=== PATIENT | female | born 1980 | race Caucasian/White ===

== ENCOUNTER 2016-12-04 16:13 | Emergency (ER) | payer MEDICAID, OTHER ==
[~2016-12-04] VITALS: Ht 162.6 cm; Wt 52.0 kg
[~2016-12-04 16:13] MED LIST: ALBU8I INH; DIPH50TA PO; IBUP400 PO; PRED20 PO; TAB-TAB PO
[2016-12-04 16:23] VITALS: BP 115/68; PULSE 71; RESP 17; TEMP 98.1; O2SAT 98
--- NOTE | 2016-12-04 17:29 | PD ---
HPI Chief Complaint: Headache Time Seen by Provider: 17:15 Travel History International Travel<30 days: No Contact w/Intl Traveler<30days: No Traveled to known affect area: No History of Present Illness HPI 36-year-old female complains of headache. Patient states that headache started yesterday. Patient states the headache from headache was severe on the right side of the head. Patient states that she has visual disturbance and photophobia. Patient has history of chronic neck pain. States the neck pain is not new. Patient states that she had transient numbness of the left arm this morning. Patient denies any nausea vomiting. Patient denies any chest pain or shortness of breath. Patient denies abdominal pain. Patient denies any focal weakness of extremity. Patient denies any recent head injury. Patient denies any fever chills. Patient states that she has a history of migraine headaches, however this one is different in the type, location and intensity. On a scale of 1-10 headache is a 10. PFSH Past Medical History Asthma: Yes Diminished Hearing: No Respiratory: Yes (Asthma ) Immunizations Current: No (DOES NOT GET ANY IMMUNIZATIONS) ?: Not LMP: 2 DAYS : 3 Para: 3 Past Surgical History Gynecologic Surgery: Yes (UTERINE SUSPESION) Social History Alcohol Use: Yes (OCC) Tobacco Use: No Substance Use: No Allergies-Medications (Allergen,Severity, Reaction): Coded Allergies: No Known Allergies (Unverified , 12/04/16) Reported Meds & Prescriptions Reported Meds & Active Scripts Active Reported Excedrin Migraine (Gufqvdt-Upospxbhpkghn-Dmkwvrcp) 250-250-65 Mg Tab 2 Tab PO DIRECTED PRN Magnesium Oxide 400 Mg Tab 400 Mg PO DAILY Multi-Vitamin Daily (Multiple Vitamin) 1 Tab Tab 1 Tab PO DAILY Review of Systems General / Constitutional: No: Fever Eyes: Positive: Photophobia, No: Visual changes HENT: Positive: Headaches Cardiovascular: No: Chest Pain or Discomfort Respiratory: No: Shortness of Breath Gastrointestinal: No: Abdominal Pain Genitourinary: No: Dysuria Musculoskeletal: No: Pain Skin: No Rash Neurologic: No: Weakness Psychiatric: No: Depression Endocrine: No: Polydipsia Hematologic/Lymphatic: No: Easy Bruising Physical Exam Narrative GENERAL: Well-nourished, well-developed patient. SKIN: Warm and dry. HEAD: Normocephalic. EYES: No scleral icterus. No injection or drainage. Pupils 2 mm equal reactive. NECK: Supple, trachea midline. No JVD or lymphadenopathy. No meningismus CARDIOVASCULAR: Regular rate and rhythm without murmurs, gallops, or rubs. RESPIRATORY: Breath sounds equal bilaterally. No accessory muscle use. GASTROINTESTINAL: Abdomen soft, non-tender, nondistended. MUSCULOSKELETAL: No cyanosis, or edema. BACK: Nontender without obvious deformity. No CVA tenderness. Neurologic exam normal. Data Data Last Documented VS Vital Signs Date Time Temp Pulse Resp B/P Pulse Ox O2 Delivery O2 Flow Rate FiO2 12/04/16 18:15 76 16 86/60 100 Room Air 12/04/16 16:23 98.1 Orders Sodium Chlor 0.9% 1000 Ml Inj (Ns 1000 M (12/04/16 17:30) Ketorolac Inj (Toradol Inj) (12/04/16 17:30) Morphine Inj (Morphine Inj) (12/04/16 17:30) Diphenhydramine Inj (Benadryl Inj) (12/04/16 17:30) Prochlorperazine Inj (Compazine Inj) (12/04/16 17:30) Ct Brain W/O Iv Contrast(Rout) (12/04/16 17:22) MDM Medical Decision Making Medical Screen Exam Complete: Yes Emergency Medical Condition: Yes Interpretation(s) [address] scan of brain negative acute pathology. Differential Diagnosis Differential diagnosis including migraine headache, tension headache, cluster headache, encephalitis, intracranial hemorrhage. Narrative Course 36-year-old female with headache. History of migraine. Normal saline solution 1 L IV bolus. Morphine 2 mg IV. Toradol 30 mg IV. Compazine 10 mg IV. Benadryl 50 mg IV. Diagnosis Primary Impression: Cephalgia Qualified Code: R51 - Nonintractable episodic headache, unspecified headache type Patient Instructions: General Instructions Additional Instructions: Take medications as needed for headache. Follow-up with personal physician and neurologist. Return if persistent problem or worse. Med/Other Pt SpecificInfo: Prescription(s) given Scripts Hydrocodone-Acetaminophen ([place])5-325 mg Tab1 Tab PO Q6H PRN ([place]ACHE) #20 TAB Ref 0 Prov:Ad Vega MD 12/04/16 Rkaoaylvaf-Bctmlgnuqqtke-Zqimadyq (Fioricet)50-300-40 Mg Cap1-2 Cap PO Q6H PRN ( HEADACHE) #30 CAP Ref 0 Prov:Ad Vega MD 12/04/16 Disposition: 01 DISCHARGE HOME Condition: Stable Ad Vega MD Dec 04, 2016 17:29
[2016-12-04] MEDS ORDERED: MORPHINE SULFATE 4 MG/ML INJ IV PUSH ONE (17:30)
[2016-12-04] MEDS ORDERED: KETOROLAC TROMETHAMINE 30 MG/ML (IVP) VIAL IV PUSH ONE (17:30)
[2016-12-04] MEDS ORDERED: SODIUM CHLOR 0.9% 1000 ML INJ 1,000 ML IV ONE (17:30)
[2016-12-04] MEDS ORDERED: PROCHLORPERAZINE INJ 10 MG/2 ML VIAL IVS ONE (17:30)
[2016-12-04] MEDS ORDERED: diphenhydrAMINE HCL 50 MG/ML VIAL IV PUSH ONE (17:30)
[2016-12-04] MEDS ORDERED: EXCETAB PO (18:12)
[2016-12-04] MEDS ORDERED: MULT-65 PO (18:12)
[2016-12-04] MEDS ORDERED: MAGN400T2 PO (18:12)
[2016-12-04 18:15] VITALS: BP 86/60; PULSE 76; RESP 16; O2SAT 100
--- NOTE | 2016-12-04 18:29 | RADHPO ---
EXAM DATE/TIME: 12/04/2016 18:06 [facility] COMPARISON: No previous studies available for comparison. INDICATIONS : Cephalgia with photophobia. RADIATION DOSE: 65.50 CTDIvol (mGy) MEDICAL HISTORY : None SURGICAL HISTORY : None. ENCOUNTER: Initial ACUITY: 2 days PAIN SCALE: 3/10 LOCATION: Bilateral cranial TECHNIQUE: Multiple contiguous axial images were obtained of the head. Using automated exposure control and adj ustment of the mA and/or kV according to patient size, radiation dose was kept as low as reasonably a chievable to obtain optimal diagnostic quality images. FINDINGS: CEREBRUM: The ventricles are normal for age. No evidence of midline shift, mass lesion, hemorrhage or acute in farction. No extra-axial fluid collections are seen. POSTERIOR FOSSA: The cerebellum and brainstem are intact. The 4th ventricle is midline. The cerebellopontine angle i s unremarkable. EXTRACRANIAL: The visualized portion of the orbits is intact. SKULL: The calvaria is intact. No evidence of skull fracture. CONCLUSION: Negative noncontrast head CT. Lennox Garcia MD on December 04, 2016 at 18:27 Board Certified Radiologist. This report was verified electronically.
[2016-12-04] MEDS ORDERED: BUTA1CAP PO (18:37)
[2016-12-04] MEDS ORDERED: NORC5TAB PO (18:37)
[2016-12-04 18:50] VITALS: BP 95/54; PULSE 75; RESP 16; O2SAT 100
== END 2016-12-04 19:09 | disposition home or self-care (01) ==
LOC: PHED 16:13
DX: R51 Headache (principal); H53.149 Visual discomfort, unspecified; G89.29 Other chronic pain; J45.909 Unspecified asthma, uncomplicated
CPT/HCPCS: 70450; 96361; 96374; 96375; 99283; J0780; J1200; J1885; J2270; J7030

== ENCOUNTER 2018-01-07 12:30 | Emergency (ER) | payer MEDICAID, OTHER ==
[~2018-01-07] VITALS: Ht 162.6 cm; Wt 52.0 kg
[~2018-01-07 12:30] MED LIST changes: -ALBU8I INH; +BUTA1CAP PO; -DIPH50TA PO; +EXCETAB PO; -IBUP400 PO; +MAGN400T2 PO; +MULT-65 PO; +NORC5TAB PO; -PRED20 PO; -TAB-TAB PO
[2018-01-07 12:37] VITALS: BP 141/68; PULSE 84; RESP 15; TEMP 97.8; O2SAT 100
[2018-01-07] MEDS ORDERED: IBUPROFEN 600 MG TAB PO ONE (13:45)
--- NOTE | 2018-01-07 14:40 | RADRPT ---
EXAM DATE/TIME: 01/07/2018 14:00 [facility] COMPARISON: No previous studies available for comparison. INDICATIONS : Fall. Left ankle pain. MEDICAL HISTORY : None. SURGICAL HISTORY : None. ENCOUNTER: Initial ACUITY: 1 day PAIN SCORE: 7/10 LOCATION: Left lateral FINDINGS: Three view exam was performed of the left ankle. The bony structures are in normal alignment. No ev idence of fracture, dislocation, or soft tissue swelling. The ankle mortise is intact. No radiopaqu e foreign bodies are seen. Bony mineralization is normal. CONCLUSION: No fracture. Derek Ken MD on January 07, 2018 at 14:38 Board Certified Radiologist. This report was verified electronically.
--- NOTE | 2018-01-07 14:40 | RADRPT ---
EXAM DATE/TIME: 01/07/2018 13:53 [facility] COMPARISON: No previous studies available for comparison. INDICATIONS : Fall. Left foot pain. MEDICAL HISTORY : None. SURGICAL HISTORY : None. ENCOUNTER: Initial ACUITY: 1 day PAIN SCORE: 7/10 LOCATION: Left lateral FINDINGS: Three view examination of the left foot demonstrates no soft tissue swelling, dislocation, or fractur e. The tarsal bones appear intact. The interphalangeal and metatarsophalangeal joints are intact. The calcaneus is intact. Bony mineralization is normal. CONCLUSION: No fracture. Derek Ken MD on January 07, 2018 at 14:38 Board Certified Radiologist. This report was verified electronically.
--- NOTE | 2018-01-07 14:40 | PD ---
HPI Chief Complaint: Injury Time Seen by Provider: 13:37 Travel History International Travel<30 days: No Contact w/Intl Traveler<30days: No Traveled to known affect area: No History of Present Illness HPI Patient is a 37-year-old female who comes in after she twisted her ankle last night while playing with her children. She says she inverted her ankle and immediately felt pain. She says she was able to walk on it after the injury, but with discomfort. She says it got worse this morning, so she came in. She tried putting ice on it and keeping it elevated without relief of her symptoms. She denies other injuries. Severity is mild. PFSH Past Medical History Asthma: Yes Diminished Hearing: No Headaches: Yes Respiratory: Yes (Asthma ) Immunizations Current: No (DOES NOT GET ANY IMMUNIZATIONS) Migraines: Yes LMP: 12/2017 : 3 Para: 3 Past Surgical History Gynecologic Surgery: Yes (UTERINE SUSPESION) Social History Alcohol Use: Yes (occas mix drinks) Tobacco Use: No (smoked cigs in high school and quit) Substance Use: No Allergies-Medications (Allergen,Severity, Reaction): Coded Allergies: No Known Allergies (Unverified Adverse Reaction, Unknown, 01/07/18) Reported Meds & Prescriptions Reported Meds & Active Scripts Active [place] (Hydrocodone-Acetaminophen) 5-325 mg Tab 1 Tab PO Q6H PRN Fioricet (Ozqsmklaeo-Whogfgzeuwssj-Fegxghfm) 50-300-40 Mg Cap 1-2 Cap PO Q6H PRN Reported Magnesium Oxide 400 Mg Tab 400 Mg PO DAILY Multi-Vitamin Daily (Multiple Vitamin) 1 Tab Tab 1 Tab PO DAILY Review of Systems General / Constitutional: No: Fever, Chills HENT: No: Headaches, Lightheadedness Cardiovascular: No: Chest Pain or Discomfort Respiratory: No: Shortness of Breath Gastrointestinal: No: Nausea, Abdominal Pain Musculoskeletal: Positive: Pain, No: Weakness Skin: No Rash, No Change in Pigmentation Neurologic: No: Weakness, Dizziness, Syncope Physical Exam Narrative GENERAL: Awake and alert, in no acute distress. SKIN: Focused skin assessment warm/dry. No wounds or signs of infection. HEAD: Atraumatic. Normocephalic. EYES: Pupils equal and round. No scleral icterus. ENT: Mucous membranes pink and moist. CARDIOVASCULAR: Regular rate and rhythm. No murmur appreciated. RESPIRATORY: No accessory muscle use. Clear to auscultation. Breath sounds equal bilaterally. MUSCULOSKELETAL: No obvious deformities. No clubbing. No cyanosis. No edema. Tender to palpation to the lateral side of the left foot. Pedal pulses and sensation intact. NEUROLOGICAL: Awake and alert. No obvious cranial nerve deficits. Motor grossly within normal limits. Normal speech. Data Data Last Documented VS Vital Signs Date Time Temp Pulse Resp B/P (MAP) Pulse Ox O2 Delivery O2 Flow Rate FiO2 01/07/18 12:37 97.8 84 15 141/68 (92) 100 Orders Orders Ankle, Complete (Cek2ahd) (01/07/18 ) Foot, Complete (Vow5zag) (01/07/18 ) Ibuprofen (Motrin) (01/07/18 13:45) MDM Medical Decision Making Medical Screen Exam Complete: Yes Emergency Medical Condition: Yes Differential Diagnosis ankle sprain vs ankle fracture vs foot fracture Narrative Course Patient is a 37 year old female who comes in complaining of ankle pain after she twisted her ankle. Exam shows tenderness to the lateral portion of the foot. XR of the foot and ankle ordered show no acute abnormalities. Last 24 hours Impressions Foot X-Ray 01/07/18 0000 Signed Impressions: Service Date/Time: Sunday, January 07, 2018 13:53 - CONCLUSION: No fracture. Derek Ken MD Ankle X-Ray 01/07/18 0000 Signed Impressions: Service Date/Time: Sunday, January 07, 2018 14:00 - CONCLUSION: No fracture. Derek Ken MD Given Ibuprofen and an Manuel Bandage. She has crutches. She is advised to rest it, ice it, use the manuel bandage and follow up with orthopedics as needed. Advised to return at any time for any worsening symptoms. Diagnosis Primary Impression: Ankle sprain Qualified Codes: S93.402A - Sprain of unspecified ligament of left ankle, initial encounter Referrals: Cam Felton Jr., MD call for appointment Patient Instructions: Ankle Sprain (ED), General Instructions Additional Instructions: Wear the manuel bandage for support. Rest, ice, compress and elevate your ankle. Take Ibuprofen as needed for pain. Follow up with orthopedics as needed. Return to the ED as needed for any worsening symptoms. Disposition: 01 DISCHARGE HOME Condition: Stable Krystyna Chaney MD Jan 07, 2018 14:40
== END 2018-01-07 15:02 | disposition home or self-care (01) ==
LOC: NEPD 12:30
DX: S93.402A Sprain of unspecified ligament of left ankle, initial encounter (principal); Z87.09 Personal history of other diseases of the respiratory system; Z86.69 Personal history of other diseases of the nervous system and sense organs; X50.1XXA Overexertion from prolonged static or awkward postures, initial encounter; Y93.89 Activity, other specified
CPT/HCPCS: 73610; 73630; 99283

== ENCOUNTER → 2018-02-14 | Outpatient (CLI) | payer OTHER ==
[~2018-02-14] MED LIST changes: -EXCETAB PO
--- NOTE | 2018-02-14 18:08 | RADRPT ---
EXAM DATE: 02/14/2018 5:31 PM EDT AGE/SEX: 37 years / Female INDICATIONS: . Pain and swelling of left ankle with fracture. Patient rolled her ankle five weeks a go. CLINICAL DATA: This is the patient's initial encounter. Patient reports that signs and symptoms have been present for 1 month and indicates a pain score of 7/10. MEDICAL/SURGICAL HISTORY: None. . Uterine suspension and tailbone removal. COMPARISON: No prior [facility] exams available for comparison. TECHNIQUE: Multiplanar, multisequence MRI examination was performed without contrast. FINDINGS: There is generalized edema in the medial malleolus as well as the lateral malleolus. There is no sign ificant joint effusion present. There is minimal edema in the syndesmosis between distal tibia and fi bula. The talofibular ligament are intact. The talocalcaneal ligament is intact. There is increased signal in the tibiotalar ligament the bulk of the fibers intact. The talocalcaneal ligament appears intact. There is minimal increased signal in the calcaneus suggesting bone bruising as well. Scattered areas of increased signal are seen in the metatarsals. Base of the fifth metatarsal is inta ct. Achilles tendon is intact. CONCLUSION: 1. Abnormal findings in the medial side of the ankle. 2. Minimal marrow edema as described above. 3. Scattered areas of high signal intensity in the distal femur, tibia and talus of uncertain signif icance. Electronically signed by: Magen Cohen MD 02/14/2018 6:07 PM EDT
== END ==
LOC: HRAD 15:56
PROVIDERS: ATTEND Orthopaedic Surgery
DX: S93.492A Sprain of other ligament of left ankle, initial encounter (principal); X58.XXXA Exposure to other specified factors, initial encounter
CPT/HCPCS: 73721